=== PATIENT | female | born 1985 | race Caucasian/White ===

== ENCOUNTER 2016-12-02 08:11 | Emergency (ER) | payer SELFPAY ==
--- NOTE | 2016-12-02 08:46 | ER Document Report ---
ED GI/ - General Mode of Arrival: Ambulatory Information source: Patient TRAVEL OUTSIDE OF THE [place] IN LAST 30 DAYS: No <AUGUSTUS NICK - Last Filed: 12/02/16 09:23> <GARDENIA FINCH - Last Filed: 12/02/16 12:18> - General Chief Complaint: Vag Bleeding, +preg <12wks Stated Complaint: ABDOMINAL PAIN/VAGINAL BLEEDING Time Seen by Provider: 12/02/16 08:40 Notes: Patient is a 31-year-old female that presents to the emergency department today with complaints of a positive test with recent vaginal bleeding. Patient states she started having bright red vaginal bleeding 5 days ago. Patient is . Patient states she is still breast-feeding. Patient states she has not had rhogam with her previous pregnancies but she cannot remember her blood type. Patient states she has had dull abdominal cramping. Patient states she has not had a period since giving in January 2015. (AUGUSTUS NICK) - Related Data Allergies/Adverse Reactions: No Known Allergies Allergy (Unverified 12/02/16 08:20) Home Medications: Current Home Medications Pnv No.95/Ferrous Fum/Folic AC [ Multivitamin Tablet] 1 each PO DAILY [History] Past Medical History - General Information source: Patient - Social History Smoking Status: Never Smoker Cigarette use (# per day): No Frequency of alcohol use: None Drug Abuse: None Lives with: Family Family History: Reviewed & Not Pertinent Patient has suicidal ideation: No Patient has homicidal ideation: No Surgical Hx: Negative <AUGUSTUS NICK - Last Filed: 12/02/16 09:23> Review of Systems - Review of Systems Constitutional: No symptoms reported EENT: No symptoms reported Cardiovascular: No symptoms reported Respiratory: No symptoms reported Gastrointestinal: No symptoms reported Genitourinary: No symptoms reported Female Genitourinary: See HPI, , Vaginal bleeding Musculoskeletal: No symptoms reported Skin: No symptoms reported Hematologic/Lymphatic: No symptoms reported Neurological/Psychological: No symptoms reported -: Yes All other systems reviewed and negative <AUGUSTUS NICK - Last Filed: 12/02/16 09:23> Physical Exam - Vital signs Interpretation: Normal - General General appearance: Appears well, Alert - HEENT Head: Normocephalic, Atraumatic Eyes: Normal Pupils: PERRL - Respiratory Respiratory status: No respiratory distress Chest status: Nontender Breath sounds: Normal Chest palpation: Normal - Cardiovascular Rhythm: Regular Heart sounds: Normal auscultation Murmur: No - Abdominal Inspection: Gravid female - belly appears much more gravid and more firm than recent conception that patient reports Bowel sounds: Normal Tenderness: Nontender Organomegaly: No organomegaly - Back Back: Normal, Nontender - Extremities General upper extremity: Normal inspection, Normal ROM. No: Edema General lower extremity: Normal inspection, Normal ROM. No: Edema - Neurological Neuro grossly intact: Yes Cognition: Normal Orientation: AAOx4 Alem Coma Scale Eye Opening: Spontaneous Alem Coma Scale Verbal: Oriented [place] Coma Scale Motor: Obeys Commands [place] Coma Scale Total: 15 Speech: Normal - Psychological Associated symptoms: Normal affect, Normal mood - Skin Skin Temperature: Warm Skin Moisture: Dry Skin Color: Normal <AUGUSTUS NICK - Last Filed: 12/02/16 09:23> - Genitourinary External exam: Normal Speculum exam: Cervix closed, Vaginal discharge, Other - There is a heavy greenish yellow mucopurulent cervical discharge. There is yeastlike adherent discharge to the vaginal copeland. The cervix does appear to be a little friable. <GARDENIA FINCH - Last Filed: 12/02/16 12:18> - Vital signs Vitals: Temp Pulse Resp BP Pulse Ox 97.9 F 88 14 122/74 97 12/02/16 08:22 12/02/16 08:22 12/02/16 08:22 12/02/16 08:22 12/02/16 08:22 Course - Laboratory Result Diagrams: 12/02/16 09:28 12/02/16 09:28 - Diagnostic Test Radiology reviewed: Reports reviewed - Transabdominal ultrasound shows a intrauterine measuring 30 weeks 1 day of 133. <GARDENIA FINCH - Last Filed: 12/02/16 12:18> - Vital Signs Vital signs: Temp Pulse Resp BP Pulse Ox 97.9 F 88 14 122/74 97 12/02/16 08:22 12/02/16 08:22 12/02/16 08:22 12/02/16 08:22 12/02/16 08:22 - Laboratory Laboratory results interpreted by me: 09/06/17 09/06/17 09:28 10:30 Carbon Dioxide 21 L BUN 6 L Creatinine 0.46 L Beta HCG, Quant 46253.00 H Ur Leukocyte Esterase LARGE H Discharge <AUGUSTUS NICK - Last Filed: 12/02/16 09:23> <GARDENIA FINCH - Last Filed: 12/02/16 12:18> - Discharge Clinical Impression: Third trimester at less than 36 weeks, Vaginal yeast infection Condition: Stable Disposition: HOME, SELF-CARE Additional Instructions: You have a vaginal yeast infection. The inflammation of the cervix is the probable cause of the bleeding you noticed. You may try [id number] Monistat vaginal suppositories to treat your yeast infection. Follow-up with the health department to start your care. RETURN TO THE EMERGENCY ROOM IF ANY NEW OR WORSENING SYMPTOMS. Scribe Attestation: 12/02/16 12:18 I personally performed the services described in the documentation, reviewed and edited the documentation which was dictated to the scribe in my presence, and it accurately records my words and actions. (GARDENIA FINCH) Scribe Documentation - Scribe Written by Mimi:: Mimi Stevens, 12/02/2016 0934 acting as scribe for :: Sherwin <AUGUSTUS NICK - Last Filed: 12/02/16 09:23>
[2016-12-02 09:44] LABS: ABSOLUTE BASOPHILS # (AUTO) 0.1 10^3/uL (0.0-0.2); ABSOLUTE EOSINOPHILS # (AUTO) 0.1 10^3/uL (0.0-0.6); ABSOLUTE LYMPHOCYTES (AUTO) 1.9 10^3/uL (0.5-4.7); ABSOLUTE NEUT (AUTO) 7.4 10^3/uL (1.7-8.2); BASOPHILS % (AUTO) 0.5 % (0-2); EOSINOPHILS % (AUTO) 0.8 % (0-6); HEMATOCRIT 36.2 % (36.0-47.0); HEMOGLOBIN 12.7 g/dL (12.0-15.5); HGB HCT DIFFERENCE 1.9; LYMPHOCYTES % (AUTO) 18.4 % (13-45); MEAN CORPUSCULAR HEMOGLOBIN 30.9 pg (27.0-33.4); MEAN CORPUSCULAR HGB CONC 34.9 g/dL (32.0-36.0); MEAN CORPUSCULAR VOLUME 88 fl (80-97); MONOCYTES % (AUTO) 9.3 % (3-13); RED CELL DISTRIBUTION WIDTH 13.3 % (11.5-14.0); WHITE BLOOD COUNT 10.4 10^3/uL (4.0-10.5)
[2016-12-02 10:20] LABS: ALANINE AMINOTRANSFERASE 22 U/L (9-52); ALBUMIN 3.7 g/dL (3.5-5.0); ALKALINE PHOSPHATASE 85 U/L (38-126); ANION GAP 11 (5-19); ASPARTATE AMINO TRANSFERASE 15 U/L (14-36); BILIRUBIN,DIRECT 0.4 mg/dL (0.0-0.4); BILIRUBIN,TOTAL 0.5 mg/dL (0.2-1.3); BLOOD UREA NITROGEN 6 mg/dL (7-20); CALCIUM 9.2 mg/dL (8.4-10.2); CARBON DIOXIDE 21 mmol/L (22-30); CHLORIDE 106 mmol/L (98-107); CREATININE RESULT 0.46 mg/dL (0.52-1.25); GLUCOSE 85 mg/dL (75-110); POTASSIUM 3.9 mmol/L (3.6-5.0); SODIUM 138.4 mmol/L (137-145); TOTAL PROTEIN 6.3 g/dL (6.3-8.2)
--- NOTE | 2016-12-02 10:59 | RADIOLOGY REPORT (SQ) ---
EXAM DESCRIPTION: U/S OB 14+ TRNABD 1GES W/O DOP COMPLETED DATE/TIME: 12/02/2016 9:39 am REASON FOR STUDY: pelvic cramps, BRB bleeding COMPARISON: None. TECHNIQUE: Static and Dynamic grayscale imaging performed of gravid uterus using transabdominal appr oach. Additional selected color Doppler and spectral images recorded. All stored on PACS. LIMITATIONS: None. FINDINGS: EGA: 30 weeks 1 day ANA: 02/09/2017 EFW: 1445 grams PERCENTILE: Not calculated JITENDRA: Largest pocket 4.7 cm. PLACENTA: Posterior PRESENTATION: Breech ANATOMY: HEART RATE: 133 beats per minute. FOUR CHAMBER HEART: Visualized. THREE VESSEL CORD: Yes. CORD INSERTION: Visualized. KIDNEYS AND BLADDER: Visualized. Appear normal. STOMACH: Visualized. Appears normal. SPINE: Normal as visualized. BRAIN AND LATERAL VENTRICLES: Visualized. Appear normal. OTHER: No other significant finding. MATERNAL ADNEXA: Maternal ovaries not visualized. CERVICAL LENGTH: Evaluated transabdominally, 3.6 cm in length Closed. OTHER: No other significant finding. IMPRESSION: LIVING INTRAUTERINE . ESTIMATED GESTATIONAL AGE 30 weeks 1 day NO VISUALIZED ANOMALIES. Trimester of : Third trimester - 28 weeks to delivery. TECHNICAL DOCUMENTATION: JOB ID: [id number] [employer]- All Rights Reserved
[2016-12-02 11:22] LABS: APPEARANCE,URINE CLOUDY; BILIRUBIN,URINE NEGATIVE (NEGATIVE); GLUCOSE, URINE NEGATIVE (NEGATIVE); KETONES,URINE NEGATIVE (NEGATIVE); LEUKOCYTE ESTERASE,URINE LARGE (NEGATIVE); NITRITE,URINE NEGATIVE (NEGATIVE); PROTEIN,URINE NEGATIVE (NEGATIVE); URINE SPECIFIC GRAVITY 1.009; UROBILINOGEN,URINE NEGATIVE mg/dL (<2.0)
[2016-12-02 12:36] VITALS: BP 108/73
[2016-12-02 13:27] LABS: CHLAM PCR NOT DETECTED (NOT DETECT)
== END 2016-12-02 12:37 | disposition home or self-care (01) ==
LOC: ER 08:11
DX: B37.3 Candidiasis of vulva and vagina (principal); O72.1 Other immediate postpartum hemorrhage; Z37.0 Single live birth; R10.9 Unspecified abdominal pain
CPT/HCPCS: 36415; 76805; 80053; 81001; 84702; 85025; 86900; 86901; 87210; 87491; 87591; 99284

== ENCOUNTER 2017-02-05 22:39 | Inpatient (IN) | payer MEDICAID ==
[2017-02-05] MEDS ORDERED: OXYTOCIN 10 UNIT/ML VIAL ONE (22:53)
[2017-02-05] MEDS ORDERED: MISOPROSTOL 0.2 MG TABLET ONE (22:53)
[2017-02-05] MEDS ORDERED: LIDOCAINE 1% INJ-PF (10 MG/ML) 30 ML SDV ONE (22:53)
[2017-02-05] MEDS ORDERED: OXYTOCIN/NORMAL SALINE 20 UNIT/1,000 ML RTUINJ ONE (22:54)
[2017-02-05] MEDS ORDERED: ACETAMINOPHEN WITH CODEINE #3 TABLET ONE (23:19)
[2017-02-05] MEDS ORDERED: IBUPROFEN 800 MG TABLET ONE (23:19)
[2017-02-06 01:48] LABS: ABSOLUTE LYMPHOCYTES (AUTO) 1.2 10^3/uL (0.5-4.7); ABSOLUTE MONOCYTES (AUTO) 1.1 10^3/uL (0.1-1.4); ABSOLUTE NEUT (AUTO) 15.1 10^3/uL (1.7-8.2); BASOPHILS % (AUTO) 0.3 % (0-2); HEMATOCRIT 35.2 % (36.0-47.0); HEMOGLOBIN 11.9 g/dL (12.0-15.5); HGB HCT DIFFERENCE 0.5; LYMPHOCYTES % (AUTO) 7.1 % (13-45); MEAN CORPUSCULAR HEMOGLOBIN 27.6 pg (27.0-33.4); MEAN CORPUSCULAR HGB CONC 33.7 g/dL (32.0-36.0); MEAN CORPUSCULAR VOLUME 82 fl (80-97); MONOCYTES % (AUTO) 6.5 % (3-13); RED BLOOD COUNT 4.31 10^6/uL (3.72-5.28); RED CELL DISTRIBUTION WIDTH 14.4 % (11.5-14.0); SEGMENTED NEUTROPHILS % (AUTO) 86.1 % (42-78); WHITE BLOOD COUNT 17.5 10^3/uL (4.0-10.5)
[2017-02-06 01:52] LABS: BILIRUBIN,URINE NEGATIVE (NEGATIVE); GLUCOSE, URINE NEGATIVE (NEGATIVE); KETONES,URINE 20 mg/dL (NEGATIVE); LEUKOCYTE ESTERASE,URINE TRACE (NEGATIVE); NITRITE,URINE NEGATIVE (NEGATIVE); PROTEIN,URINE 100 mg/dL (NEGATIVE); URINE SPECIFIC GRAVITY 1.016
[2017-02-06 01:53] LABS: APPEARANCE,URINE CLOUDY
--- NOTE | 2017-02-06 01:59 | Admission Physical ---
Datetime Report Generated by CPN: 02/06/2017 01:59 CURRENT ADMISSION Chief Complaint: Uterine Contractions Indication for Induction: Not Applicable Indication for Induction: Term, Intrauterine ; Active Labor; Ruptured Membranes Admit Plan: Admit to Unit; Initiate Labor Protocol ALLERGIES Medication Allergies: No Medication Allergies: Fish Containing Products (02/06/2017); egg (02/06/2017) Latex: No Latex Allergies Food Allergies: Eggs OBSTETRICAL HISTORY EDC: 02/09/2017 00:00 : 4 Para: 2 Term: 2 : 0 SAB: 0 IAB: 1 Ectopic: 0 Livin Gestational Diabetes: No Rh Sensitization: No Incompetent Cervix: No JESS: No Infertility: No ART Treatment: No Uterine Anomaly: No IUGR: No Hx Previous C/S: No Macrosomia: No Hx Loss/Stillborn: No PIH: Yes Hx : No Placenta Previa/Abruption: No Depression/PP Depression: No PTL/PROM: No Post Hemorrhage: No Current Procedures: Ultrasound Obstetrical History Comments: 2008 IAB 2014 39 weeks baby girl (HTN) 2015 39 weeks baby boy 2016 current (close interval) SEE RECORDS Alcohol: No Marijuana : No Cocaine: No Other Illicit Drugs: No Cigarettes: Never Smoker. [id number] MEDICAL HISTORY Diabetes: No Blood Transfusion: No Pulmonary Disease (Asthma, TB): No Breast Disease: No Hypertension: No Tamper Operator Surgery: No Heart Disease: No Hosp/Surgery: No Autoimmune Disorder: No Anesthetic Complications: No Kidney Disease: No Abnormal Pap Smear: No Neuro/Epilepsy: No Psychiatric Disorders: No Other Medical Diseases: No Hepatitis/Liver Disease: No Significant Family History: No Varicosities/Phlebitis: Yes Trauma/Violence : No Thyroid Dysfunction: No Medical History Comments: varicose veins INFECTIOUS HISTORY Gonorrhea: No Genital Herpes: No Chlamydia: No Tuberculosis: No Syphilis: No Hepatitis: No HIV/AIDS Exposure: No Rash or Viral Illness: No HPV: No PHYSICAL EXAM General: Normal HEENT: Normal Neurologic: Normal Thyroid: Deferred Heart: Normal Lungs: Normal Breast: Deferred Back: Normal Abdomen: Normal Genitourinary Exam: Normal Extremities: Normal DTRs: Normal Pelvic Type: Adequate Vital Signs: Reviewed; Within Normal Limits VAGINAL EXAM Dilatation: 9 Effacement: 100 Station: 0 MEMBRANES Membranes: Ruptured Amniotic Fluid Color: Clear FETUS A EGA: 39.3 Monitoring: External US FHR- Baseline: 140 Variability: Moderate 6-25bpm Accelerations: 15X15 FHR Category: Category II Presentation: Vertex PLANS FOR LABOR AND DELIVERY Labor and Delivery: None Pain Management: Epidural Feeding Preference: Breast Benefit of Breast Feed Discussed: Yes Circumcision: No INFORMED CONSENT Signature: with User ID: [email or web address]
[2017-02-06 02:14] LABS: URINE BARBITURATES SCREEN NEGATIVE; URINE METHADONE SCREEN NEGATIVE; URINE PHENCYCLIDINE SCREEN NEGATIVE
--- NOTE | 2017-02-06 02:20 | Delivery Summary ---
Del Sum A-C Datetime Report Generated by CPN: 02/06/2017 02:20 DELIVERY PERSONNEL DELIVERY PERSONNEL: [id number] Delivery Doctor:: Maksim Michaud, DO Labor and Delivery Nurse:: Lizzy Tai RNinvestigation specialist Nurse:: Tootie Alfred RN Exchange Consultant:: Jewell Romano RN Director Of Health Care Marketing/LOCK PLATER: Leah Sam, LOCK PLATER MATERNAL INFORMATION Delivery Anesthesia: None Medications After Delivery: Pitocin Bolus-Please Comment; Pitocin Drip 20 Units/1000ml NSS Meds After Delivery Comment: ns with pitocin 20 units/liter ivf bolus x 1 Estimated Blood Loss (ml): 250 Maternal Complications: Precipitous Labor (<3hrs) Provider Comments: of viable female Loose Nuchal cord x1, easily reduced Placenta delievered spontaneous and intact with 3v cord Fundus firm LABOR SUMMARY EDC: 02/09/2017 00:00 No. Babies in Womb: 1 Attempted: No Labor Anesthesia: None LABOR INFORMATION Reason for Induction: Not Applicable Onset of Labor: 02/05/2017 21:00 Complete Dilatation: 02/05/2017 23:05 (Annotations: Data stored by [facility] on behalf of user) Oxytocin: N/A Group B Beta Strep: negative Steroids Given: None Reason Steroids Not Administered: Not Applicable MEMBRANES Membranes Rupture Method: Spontaneous Rupture of Membranes: 02/05/2017 22:49 Length of Rupture (hr): 0.32 Amniotic Fluid Color: Clear Amniotic Fluid Amount: Small Amniotic Fluid Odor: Normal STAGES OF LABOR Stage 1 hr: 2 Stage 1 min: 5 Stage 2 hr: 0 Stage 2 min: 3 Stage 3 hr: 0 Stage 3 min: 3 Total Time in Labor hr: 2 Total Time in Labor min: 11 VAGINAL DELIVERY Episiotomy: None Laceration #1: Periurethral Laceration Extension #1: First Degree Laceration #2: Perineal Laceration Extension #2: First Degree Laceration Repair: Yes Laceration Repair Note: Repaired with 2-0 and 3-0 chromic inusual fashion with good hemostasis Sponge Count Correct: N/A Sharps Count Correct: Yes CSECTION DELIVERY Primary Indication: N/A Secondary Indication: N/A CSection Incidence: N/A Labor: N/A Elective: N/A CSection Incision: N/A BABY A INFORMATION Infant Delivery Date/Time: 02/05/2017 23:08 Method of Delivery: Vaginal Born in Route : No : N/A Forceps: N/A Vacuum Extraction: N/A Shoulder Dystocia : No PRESENTATION/POSITION BABY A Presentation: Cephalic Cephalic Presentation: Vertex Vertex Position: Left Occipital Anterior Breech Presentation: N/A PLACENTA INFORMATION BABY A Placenta Delivery Time : 02/05/2017 23:11 Placenta Method of Delivery: Spontaneous Placenta Status: Delivered SCORES BABY A Heart Rate 1 min: >100 bpm Resp Effort 1 min: Good Cry Reflex Irritability 1 min: Cough or Sneeze or Pulls Away Muscle Tone 1 min: Active Motion Color 1 min: Blue/Pale Resuscitation Effort 1 min: Tactile Stimulation SCORE 1 MIN: 8 Heart Rate 5 min: >100 bpm Resp Effort 5 min: Good Cry Reflex Irritability 5 min: Cough or Sneeze or Pulls Away Muscle Tone 5 min: Active Motion Color 5 min: Body [place], Extremities Blue SCORE 5 MIN: 9 INFANT INFORMATION BABY A Gestational Age at Delivery: 39.3 Gestational Status: Full Term- 39- 40.6 Weeks Infant Outcome : Liveborn Infant Condition : Stable Infant Sex: Female IDENTIFICATION BABY A Infant Verification Date/Time: 02/05/2017 23:40 ID Band Number: [id number] Mother's Name Verified: Yes RN Verifying Infant: RN [facility] Additional Verifying Personnel: RN Harmeet WEIGHT/LENGTH BABY A Infant Birthweight (gm): 3580 Infant Weight (lb): 7 Infant Weight (oz): 14 Length (in): 20.00 Length (cm): 50.80 CORD INFORMATION BABY A No. Cord Vessels: 3 Nuchal Cord : Around Neck x1, Loose Cord Blood Taken: Yes-For Eval (Mom's Blood Type - or O+) Suction: Mouth ASSESSMENT BABY A Complications: Other Infant Complications- Other: broken tracing, difficult to determine if decelerations present Physical Findings at Delivery: Within Normal Limits Physical Findings- Other: See full nursery assessment Respirations: Appears Normal Skin to Skin: Yes Skin to Skin Time (min): 60 Postal Mail Carrier/ALS Called : No Infant Care By: Karen KIM Transferred To: Remains with Mother SIGNATURES Signature: with User ID: [email or web address]
[2017-02-06] MEDS ORDERED: ZOLPIDEM TARTRATE 5 MG TABLET PO PRN (02:30)
[2017-02-06] MEDS ORDERED: DIPH/PERTUSS(ACELL)/TETANUS VAC/PF 0.5 ML SYR (>=10YO) IM PRN (02:30)
[2017-02-06] MEDS ORDERED: MEASLES,MUMPS&RUBELLA VACC/PF 0.5 ML VIAL SUBCUT PRN (02:30)
[2017-02-06] MEDS ORDERED: DIBUCAINE 1% OINTMENT 28 GM TP PRN (02:30)
[2017-02-06] MEDS ORDERED: BENZOCAINE/MENTHOL AEROSOL SPRAY 56 ML TOP PRN (02:30)
[2017-02-06] MEDS ORDERED: ACETAMINOPHEN WITH CODEINE #3 TABLET PO PRN ×2 (02:30)
[2017-02-06 02:53] LABS: URINE OPIATES LOW UNCONFIRMED POSITIVE
[2017-02-06] MEDS: IBUPROFEN 800 MG TABLET PO SCH ×3 (06:35→22:29)
[2017-02-06 07:54] LABS: HEMATOCRIT 32.9 % (36.0-47.0); HEMOGLOBIN 11.1 g/dL (12.0-15.5); HGB HCT DIFFERENCE 0.4; MEAN CORPUSCULAR HEMOGLOBIN 27.8 pg (27.0-33.4); MEAN CORPUSCULAR HGB CONC 33.7 g/dL (32.0-36.0); MEAN CORPUSCULAR VOLUME 83 fl (80-97); RED BLOOD COUNT 3.99 10^6/uL (3.72-5.28); RED CELL DISTRIBUTION WIDTH 14.4 % (11.5-14.0); WHITE BLOOD COUNT 15.1 10^3/uL (4.0-10.5)
[2017-02-06] MEDS: PRENATAL VITAMIN W-O CA NO5/FE FUMARATE/FA CAPSULE PO SCH (10:53)
[2017-02-06] MEDS: SENNOSIDES/DOCUSATE 8.6-50 MG 1 EACH TABLET PO SCH (10:53)
[2017-02-06] MEDS: DOCUSATE SODIUM 100 MG CAPSULE PO SCH ×2 (10:53→17:14)
[2017-02-06] MEDS: FERROUS SULFATE 325 MG TABLET PO SCH ×2 (10:53→17:14)
--- NOTE | 2017-02-06 11:29 | PDOC PROGRESS REPORT ---
Subjective-OB Subjective: Post Delivery Day: 31 year old. Denies any needs at this time Physical Exam (OB) Vital Signs: Temp Pulse Resp BP Pulse Ox 97.8 F 82 14 124/85 98 02/06/17 08:10 02/06/17 08:10 02/06/17 08:10 02/06/17 08:10 02/06/17 08:10 Intake & Output 02/05/17 02/06/17 02/07/17 06:59 06:59 06:59 Intake Total 240 Balance 240 Weight 85 kg - Lochia Lochia Amount: Small 10-25 ml Lochia Color: Rubra/Red - Abdomen Description: Soft, Round Hernia Present: No Bowel Sounds: Normoactive Flatus Presence: Present Stool: No Fundal Description: Firm, Midline Fundal Height: u/u - u/2 Objective-Diagnostic Laboratory: 02/06/17 07:28 02/06/17 02/06/17 02/06/17 01:05 01:34 01:34 WBC 17.5 H RBC 4.31 Hgb 11.9 L Hct 35.2 L MCV 82 MCH 27.6 MCHC 33.7 RDW 14.4 H Plt Count 191 Seg Neutrophils % 86.1 H Lymphocytes % 7.1 L Monocytes % 6.5 Eosinophils % 0.0 Basophils % 0.3 Absolute Neutrophils 15.1 H Absolute Lymphocytes 1.2 Absolute Monocytes 1.1 Absolute Eosinophils 0.0 Absolute Basophils 0.0 Urine Color RED Urine Appearance CLOUDY Urine pH 6.0 Ur Specific [place] 1.016 Urine Protein 100 H Urine Glucose (UA) NEGATIVE Urine Ketones 20 H Urine Blood LARGE H Urine Nitrite NEGATIVE Ur Leukocyte Esterase TRACE H Blood Type O POSITIVE Antibody Screen NEGATIVE 02/06/17 07:28 WBC 15.1 H RBC 3.99 Hgb 11.1 L Hct 32.9 L MCV 83 MCH 27.8 MCHC 33.7 RDW 14.4 H Plt Count 198 Seg Neutrophils % Lymphocytes % Monocytes % Eosinophils % Basophils % Absolute Neutrophils Absolute Lymphocytes Absolute Monocytes Absolute Eosinophils Absolute Basophils Urine Color Urine Appearance Urine pH Ur Specific [place] Urine Protein Urine Glucose (UA) Urine Ketones Urine Blood Urine Nitrite Ur Leukocyte Esterase Blood Type Antibody Screen
[2017-02-07] MEDS: IBUPROFEN 800 MG TABLET PO SCH (06:29)
[2017-02-07 07:45] LABS: HEMATOCRIT 35.9 % (36.0-47.0); HEMOGLOBIN 12.1 g/dL (12.0-15.5); HGB HCT DIFFERENCE 0.4; MEAN CORPUSCULAR HEMOGLOBIN 27.7 pg (27.0-33.4); MEAN CORPUSCULAR HGB CONC 33.6 g/dL (32.0-36.0); MEAN CORPUSCULAR VOLUME 82 fl (80-97); RED BLOOD COUNT 4.37 10^6/uL (3.72-5.28); RED CELL DISTRIBUTION WIDTH 14.6 % (11.5-14.0); WHITE BLOOD COUNT 12.3 10^3/uL (4.0-10.5)
[2017-02-07 08:32] VITALS: BP 120/80
[2017-02-07] MEDS: PRENATAL VITAMIN W-O CA NO5/FE FUMARATE/FA CAPSULE PO SCH (09:11)
[2017-02-07] MEDS: DOCUSATE SODIUM 100 MG CAPSULE PO SCH (09:11)
[2017-02-07] MEDS: SENNOSIDES/DOCUSATE 8.6-50 MG 1 EACH TABLET PO SCH (09:11)
[2017-02-07] MEDS: FERROUS SULFATE 325 MG TABLET PO SCH (09:11)
--- NOTE | 2017-02-07 10:27 | PDOC PROGRESS REPORT ---
Subjective-OB Subjective: Post Delivery Day: 31 year old. Denies any needs at this time. Ready to go home. Physical Exam (OB) Vital Signs: Temp Pulse Resp BP Pulse Ox 98.1 F 86 16 120/80 99 02/07/17 08:26 02/07/17 08:26 02/07/17 08:26 02/07/17 07:39 02/07/17 08:26 Intake & Output 02/06/17 02/07/17 02/08/17 06:59 06:59 06:59 Intake Total 240 480 Balance 240 480 Weight 85 kg - Lochia Lochia Amount: Scant < 10 ml Lochia Color: Rubra/Red - Abdomen Description: Soft, Round Hernia Present: No Bowel Sounds: Normoactive Flatus Presence: Present Stool: Yes Fundal Description: Firm, Midline Fundal Height: u/u - u/2 Objective-Diagnostic Laboratory: 02/07/17 07:37 02/07/17 07:37 WBC 12.3 H RBC 4.37 Hgb 12.1 Hct 35.9 L MCV 82 MCH 27.7 MCHC 33.6 RDW 14.6 H Plt Count 180
--- NOTE | 2017-02-07 10:31 | PDOC DISCHARGE SUMMARY ---
Final Diagnosis Discharge Date: 02/07/17 - Final Diagnosis (1) Varicosities of leg Is this a current diagnosis for this admission?: Yes (2) Insufficient antepartum care Is this a current diagnosis for this admission?: Yes (3) Delivery normal Is this a current diagnosis for this admission?: Yes (4) Is this a current diagnosis for this admission?: Yes Discharge Data - Discharge Medication Home Medications: Pnv No.95/Ferrous Fum/Folic AC [ Multivitamin Tablet] 1 each PO DAILY Gestational Age: 39.3 wks Reason(s) for Admission: Onset of Labor Procedures: Ultrasound Intrapartum Procedure(s): Spontaneous Vaginal Delivery Complication(s): Laceration-Periurethral Laceration-Degree: 1st - [place] Data Baby 1 Female at 1 minute: 8 at 5 minutes: 9 Weight: 3.572 kg Home with Mother: Yes Complications: No - Diagnosis Test Laboratory: Temp Pulse Resp BP Pulse Ox 98.1 F 86 16 120/80 99 02/07/17 08:26 02/07/17 08:26 02/07/17 08:26 02/07/17 07:39 02/07/17 08:26 02/06/17 02/06/17 02/06/17 01:05 01:34 07:28 RBC 4.31 3.99 Hgb 11.9 L 11.1 L Hct 35.2 L 32.9 L Urine Opiates Screen UNCONFIRMED POSITIVE 02/07/17 07:37 RBC 4.37 Hgb 12.1 Hct 35.9 L Urine Opiates Screen - Discharge information/Instructions Discharge Activity: Activity As Tolerated, Balance Activity w/Rest, Non- Ambulatory Child, Pelvic Rest, Slowly Increase Activity, No tub bath Discharge Diet: Regular Disposition: HOME, SELF-CARE Follow up with: [facility] in: 4, Weeks
== END 2017-02-07 12:14 | disposition home or self-care (01) | DRG 775 ==
LOC: LC 22:39 → LR 22:58 → 2S 02-06 01:56
PROVIDERS: ADMIT Obstetrics & Gynecology; ATTEND Obstetrics & Gynecology
PROC: 10E0XZZ Delivery of Products of Conception, External Approach (ICD-10-PCS; principal; 2017-02-05)
PROC: 0HQ9XZZ Repair Perineum Skin, External Approach (ICD-10-PCS; 2017-02-05)
PROC: 4A1HXCZ Monitoring of Products of Conception, Cardiac Rate, External Approach (ICD-10-PCS; 2017-02-05)
DX: O69.81X0 Labor and delivery complicated by cord around neck, without compression, not applicable or unspecified (principal); O62.3 Precipitate labor; O70.0 First degree perineal laceration during delivery; O22.03 Varicose veins of lower extremity in pregnancy, third trimester; Z3A.39 39 weeks gestation of pregnancy; Z37.0 Single live birth
CPT/HCPCS: 36415; 80307; 81005; 85025; 85027; 86592; 86850; 86900; 86901; 87491; 87591; 94760; J2590; J3490

== ENCOUNTER → 2019-10-30 | Outpatient (CLI) | payer SELFPAY ==
--- NOTE | 2019-10-30 14:42 | RADIOLOGY REPORT (SQ) ---
EXAM DESCRIPTION: U/S [id number] TRNABD 1GES W/ODOP IMAGES COMPLETED DATE/TIME: 10/30/2019 2:30 pm REASON FOR STUDY: ENCTR FOR SUPERVISION OF OTHER NORMAL , 1ST TRIMESTER (Z34.81) Z34.81 EN COUNTER FOR SUPRVSN OF NORMAL , FIRST TRIM COMPARISON: None. TECHNIQUE: Transabdominal static and realtime grayscale images acquired of the pelvis. Additional se lected spectral and color Doppler images recorded. All images stored on PACs. bHCG: Not available. CLINICAL DATES: 11 weeks 2 days. LIMITATIONS: None. FINDINGS: FETUS: Single Living intrauterine . ULTRASOUND EGA: 11 weeks 4 days. ULTRASOUND ANA: 05/16/2020 EFW: Not applicable less than 20 weeks. CRL: 4.7 cm. FHR: 173 beats per minute. SURVEY: Too early to assess. AMNIOTIC FLUID: Adequate amount. PLACENTA: Not yet developed due to early gestation. SUBCHORIONIC BLEED: No. SIZE OF BLEED: Not applicable. UTERUS: 5.0 x 5.5 x 4.4 cm uterine fibroid. This is anterior location. CERVICAL LENGTH: 3.8 cm. Closed. RIGHT ADNEXA: Ovary not identified due to poor acoustical window. No adnexal free fluid. No adnexal masses. LEFT ADNEXA: Normal ovary with normal vascular flow. No adnexal free fluid. No adnexal masses. FREE FLUID: None. OTHER: No other significant finding. IMPRESSION: LIVING INTRAUTERINE . EGA 11 WEEKS 4 DAYS. 5.0 X 5.5 X 4.4 CM ANTERIOR UTERINE FIBROID. Trimester of : First trimester - 0 to 13 weeks. TECHNICAL DOCUMENTATION: JOB ID: [id number] [employer]- All Rights Reserved Reading location - IP/workstation name: [email or web address]
== END ==
LOC: RAD 13:51
PROVIDERS: ATTEND Nurse Practitioner Family
DX: O34.11 Maternal care for benign tumor of corpus uteri, first trimester (principal); D25.9 Leiomyoma of uterus, unspecified; Z3A.11 11 weeks gestation of pregnancy
CPT/HCPCS: 76801

== ENCOUNTER 2020-01-08 01:19 | Outpatient (CLI) | payer MEDICAID ==
[2020-01-08 02:18] LABS: T.VAGINALIS (WET MOUNT) NO TRICHOMONAS SEEN
[2020-01-08 02:19] LABS: BACTERIA (WET MOUNT) 4+ BACTERIA SEEN; EPITHELIALS (WET MOUNT) 4+ EPITHELIALS SEEN; RBCS (WET MOUNT) FEW RBCS SEEN; WBCS (WET MOUNT) 2+ WBCS SEEN; YEAST (WET MOUNT) NO YEAST SEEN
[2020-01-08 02:37] LABS: APPEARANCE,URINE CLEAR; BILIRUBIN,URINE NEGATIVE (NEGATIVE); CALCIUM OXALATE CRYSTALS,URINE FEW /HPF; COLOR,URINE YELLOW; GLUCOSE, URINE NEGATIVE (NEGATIVE); KETONES,URINE NEGATIVE (NEGATIVE); LEUKOCYTE ESTERASE,URINE TRACE (NEGATIVE); NITRITE,URINE NEGATIVE (NEGATIVE); PROTEIN,URINE NEGATIVE (NEGATIVE); URINE SPECIFIC GRAVITY 1.015; UROBILINOGEN,URINE NEGATIVE mg/dL (<2.0)
[2020-01-08 02:40] LABS: URINE AMPHETAMINES SCREEN NEGATIVE; URINE BARBITURATES SCREEN NEGATIVE; URINE BENZODIAZEPINES SCREEN NEGATIVE; URINE COCAINE SCREEN NEGATIVE; URINE MARIJUANA (THC) SCREEN NEGATIVE; URINE METHADONE SCREEN NEGATIVE; URINE PHENCYCLIDINE SCREEN NEGATIVE
[2020-01-08 03:46] LABS: CHLAM PCR NOT DETECTED (NOT DETECT)
== END 2020-01-08 03:09 | disposition home or self-care (01) ==
LOC: LC 01:19
PROVIDERS: ATTEND Obstetrics & Gynecology Gynecology
DX: O46.92 Antepartum hemorrhage, unspecified, second trimester (principal); Z3A.21 21 weeks gestation of pregnancy
CPT/HCPCS: 80307; 81001; 87210; 87491; 87591